=== PATIENT | female | born 1985 | race Caucasian/White ===

== ENCOUNTER → 2018-10-12 | Day surgery (SDC) | payer OTHER ==
[~2018-10-12] MED LIST: GLYCOPYRROLATE 1 MG/5 ML VIAL. ONE; IV RINGERS,LACTATED 1000ML 1,000 ML IV SCH; LEXAPRO20 MG PO; LIDOCAINE 1% PF 2 ML VIAL. ID PRN; MIDAZOLAM HCL/PF 2 MG/2 ML VIAL. IV PRN; PANT20TA2 PO; PROPOFOL 40 ML IV ONE; QUET100T4 PO; TRAZ-118 PO; fentaNYL PF VIAL 100 MCG/2 ML VIAL IV PRN
[2018-10-12 13:33] LABS: U PREG PATIENT NEGATIVE (NEG)
[2018-10-12 14:15] VITALS: BP 168/70
== END | disposition home or self-care (01) ==
LOC: SURG 11:45
PROVIDERS: ATTEND Internal Medicine
DX: K21.0 Gastro-esophageal reflux disease with esophagitis (principal); Z88.6 Allergy status to analgesic agent
CPT/HCPCS: 43235; 81025; J2704; J3490

== ENCOUNTER → 2018-10-18 | Outpatient (CLI) | payer OTHER ==
[2018-10-12 14:15] VITALS: BP 168/70
[~2018-10-18] MED LIST changes: -GLYCOPYRROLATE 1 MG/5 ML VIAL. ONE; -IV RINGERS,LACTATED 1000ML 1,000 ML IV SCH; -LIDOCAINE 1% PF 2 ML VIAL. ID PRN; -MIDAZOLAM HCL/PF 2 MG/2 ML VIAL. IV PRN; -PROPOFOL 40 ML IV ONE; -fentaNYL PF VIAL 100 MCG/2 ML VIAL IV PRN
--- NOTE | 2018-10-18 14:22 | RAD ---
EXAM: Nuclear gastric emptying scan. HISTORY: Retained food for EGD. COMPARISON: None. TECHNIQUE: Serial static images were obtained over the stomach following oral administration of 2.0 mCi of 99m-Tc sulfur colloid. FINDINGS: The stomach empties into the small bowel without evidence of reflux in the area of the esophagus. The estimated time for half emptying of gastric contents, i.e. 'gastric emptying time' is 100 minutes (normal is 66 +/- 22 minutes). There is 80 percent retained tracer activity within the stomach at one hour, 37 percent retained tracer activity within the stomach at 2 hours, 16 percent retained tracer activity within the stomach at 3 hours and 1 percent retained tracer activity within the stomach at 4 hours. IMPRESSION: Slightly delayed gastric emptying half-time of 100 minutes. Electronically signed by: Dea Tesfaye MD (10/18/2018 2:19 PM) [id number]
== END | disposition home or self-care (01) ==
LOC: NM 08:29
PROVIDERS: ATTEND Internal Medicine
DX: K31.84 Gastroparesis (principal); K30 Functional dyspepsia
CPT/HCPCS: 78264; A9541